=== PATIENT | female | born 1940 ===

== ENCOUNTER 2020-10-13 14:12 | Inpatient (IN) | payer OTHER ==
[~2020-10-13] VITALS: Wt 51.3 kg
[2020-10-13] MEDS ORDERED: CETIRIZINE10 MG PO (16:21)
[2020-10-13] MEDS ORDERED: B121000 MCG/1 IM (16:23)
[2020-10-13] MEDS ORDERED: EXELON1 EAC1 T (16:23)
[2020-10-13] MEDS ORDERED: TRELEGY ELLIPT1 EACH INH (16:25)
[2020-10-13] MEDS ORDERED: LASIX20 MG PO (16:26)
[2020-10-13] MEDS ORDERED: MEGACE 40400 MG/10 PO (16:27)
[2020-10-13] MEDS ORDERED: MELATONIN10 M2 PO (16:28)
[2020-10-13] MEDS ORDERED: PROTONIX40 MG PO (16:29)
[2020-10-13] MEDS ORDERED: REMERON15 M2 PO (16:30)
[2020-10-13] MEDS ORDERED: VITAMIN D3125 MC1 PO (16:31)
[2020-10-13] MEDS ORDERED: PROAIR HFA8.5 GM INH (16:32)
[2020-10-13] MEDS ORDERED: COLACE100 MG PO (16:32)
[2020-10-13] MEDS ORDERED: VISTARIL50 MG PO (16:33)
[2020-10-13] MEDS ORDERED: VENTOLIN 02.5 MG/3 M INH (16:34)
[2020-10-13] MEDS ORDERED: ATIVAN1 MG PO (16:35)
[2020-10-13] MEDS ORDERED: MILK OF MA400 MG/5 M PO (16:36)
[2020-10-13] MEDS ORDERED: TYLENOL325 M1 PO (16:36)
[2020-10-13 17:35] VITALS: BP 107/48
[2020-10-13 18:38] LABS: BILIRUBIN Negative (Negative); BLOOD Negative (Negative); CLARITY Clear (Clear); COLOR Yellow (Yellow); GLUCOSE Negative (Negative); KETONE Negative (Negative); LEUKO ESTERASE 2+ (Negative); NITRITE Negative (Negative); SPECIFIC GRAVITY 1.015 (1.001-1.030)
[2020-10-13 19:02] LABS: BACTERIA 3+; RBC 0-2 rbc/hpf (0-2); WBC 21-30 wbc/hpf (0-5)
[2020-10-14 06:27] LABS: BASO % 0.4 % (0.0-1.0); EOS # 0.2 10*3/uL (0.0-0.4); EOS % 3.5 % (1.0-4.0); HEMATOCRIT 36.4 % (37.0-47.0); LYMPH % 29.4 % (27.0-41.0); MEAN CELL VOLUME 94.3 fl (81.0-99.0); MEAN CORPUSCULAR HGB 30.1 pg (27.0-31.0); MEAN CORPUSCULAR HGB CONC 31.9 g/dl (33.0-37.0); MONO # 0.6 10*3/uL (0.1-1.0); MONO % 8.7 % (3.0-9.0); NEUT % 57.7 % (47.0-73.0); PLATELET COUNT AUTOMATED 284 10*3/uL (130-400); RED BLOOD COUNT 3.86 10*6/uL (4.10-5.10); RED CELL DISTRI WIDTH 13.7 % (0-14.5); WHITE BLOOD COUNT 6.9 10*3/uL (4.8-10.8)
[2020-10-14 06:29] LABS: ALBUMIN 3.2 gm/dl (3.1-4.5); CREATININE 1.3 mg/dL (0.55-1.02); POTASSIUM 3.7 mmol/L (3.5-5.1); TOTAL PROTEIN 6.8 gm/dL (6.4-8.2)
[2020-10-14 06:37] LABS: THYROID STIM HORMONE (HS) 0.299 uIU/ml (0.358-4.75)
[2020-10-14 08:10] LABS: VITAMIN D, 25-HYDROXY 36.6 ng/mL (30-100)
[2020-10-14 08:14] VITALS: BP 110/50
[2020-10-14 20:00] VITALS: BP 110/58
[2020-10-15 07:51] VITALS: BP 116/76
[2020-10-15 12:54] LABS: FREE T4 1.14 ng/dl (0.76-1.46)
[2020-10-15 12:59] LABS: THYROID STIM HORMONE (HS) 0.236 uIU/ml (0.358-4.75)
[2020-10-15 20:00] VITALS: BP 121/65
[2020-10-16 07:04] LABS: CREATININE 1.22 mg/dL (0.55-1.02); POTASSIUM 4.3 mmol/L (3.5-5.1)
[2020-10-16 07:49] VITALS: BP 120/62
[2020-10-16 20:00] VITALS: BP 110/50
[2020-10-17 07:25] VITALS: BP 110/59
[2020-10-17 20:00] VITALS: BP 118/62
[2020-10-18 06:33] LABS: CREATININE 1.25 mg/dL (0.55-1.02); POTASSIUM 4.2 mmol/L (3.5-5.1)
[2020-10-18 07:51] VITALS: BP 111/50
[2020-10-18 10:56] LABS: ABG BASE EXCESS 17.3 mmol/L (-2.0-2.0); ARTERIAL BLOOD GAS PH 7.396 (7.35-7.45); ARTERIAL BLOOD GAS PO2 103.6 (80-90)
[2020-10-18] MEDS ORDERED: FUROSEMIDE40 MG PO (12:28)
[2020-10-18] MEDS ORDERED: RIVASTIGMINE1 EAC2 T (12:28)
== END 2020-10-18 13:05 | disposition short-term general hospital (02) | DRG 883 ==
LOC: 3N 14:12
PROVIDERS: Internal Medicine; ADMIT Psychiatry & Neurology Psychiatry; ATTEND Psychiatry & Neurology Psychiatry
DX: F63.81 Intermittent explosive disorder (principal); N18.30 Chronic kidney disease, stage 3 unspecified; N39.0 Urinary tract infection, site not specified; G30.9 Alzheimer's disease, unspecified; F02.80 Dementia in other diseases classified elsewhere, unspecified severity, without behavioral disturbance, psychotic disturbance, mood disturbance, and anxiety; J44.9 Chronic obstructive pulmonary disease, unspecified; M79.89 Other specified soft tissue disorders; K21.9 Gastro-esophageal reflux disease without esophagitis; Z87.442 Personal history of urinary calculi; Z87.891 Personal history of nicotine dependence; Z88.0 Allergy status to penicillin; Z88.2 Allergy status to sulfonamides; Z88.1 Allergy status to other antibiotic agents; Z90.710 Acquired absence of both cervix and uterus; Z79.899 Other long term (current) drug therapy

== ENCOUNTER 2020-10-18 13:43 | Inpatient (IN) | payer OTHER ==
[~2020-10-18] VITALS: Ht 157.4 cm; Wt 50.6 kg
[~2020-10-18 13:43] MED LIST: ATIVAN1 MG PO; B121000 MCG/1 IM; CETIRIZINE10 MG PO; COLACE100 MG PO; EXELON1 EAC1 T; FUROSEMIDE40 MG PO; LASIX20 MG PO; MEGACE 40400 MG/10 PO; MELATONIN10 M2 PO; MILK OF MA400 MG/5 M PO; PROAIR HFA8.5 GM INH; PROTONIX40 MG PO; REMERON15 M2 PO; RIVASTIGMINE1 EAC2 T; TRELEGY ELLIPT1 EACH INH; TYLENOL325 M1 PO; VENTOLIN 02.5 MG/3 M INH; VISTARIL50 MG PO; VITAMIN D3125 MC1 PO
[2020-10-18 14:25] VITALS: BP 111/89
[2020-10-18 14:33] LABS: BASO % 0.7 % (0.0-1.0); EOS # 0.2 10*3/uL (0.0-0.4); EOS % 3.9 % (1.0-4.0); HEMATOCRIT 39.8 % (37.0-47.0); LYMPH # 1.1 10*3/uL (1.3-4.4); LYMPH % 18.6 % (27.0-41.0); MEAN CELL VOLUME 97.5 fl (81.0-99.0); MEAN CORPUSCULAR HGB 30.1 pg (27.0-31.0); MEAN CORPUSCULAR HGB CONC 30.9 g/dl (33.0-37.0); MEAN PLATELET VOLUME 9.3 fl (9.6-12.3); MONO # 0.6 10*3/uL (0.1-1.0); MONO % 10.9 % (3.0-9.0); NEUT # 3.8 10*3/uL (2.3-7.9); NEUT % 65.9 % (47.0-73.0); PLATELET COUNT AUTOMATED 220 10*3/uL (130-400); RED BLOOD COUNT 4.08 10*6/uL (4.10-5.10); RED CELL DISTRI WIDTH 13.2 % (0-14.5); WHITE BLOOD COUNT 5.7 10*3/uL (4.8-10.8)
[2020-10-18 16:00] VITALS: BP 109/78
[2020-10-18 20:00] VITALS: BP 115/46
[2020-10-19] VITALS: BP 86/42
[2020-10-19 06:06] LABS: BASO # 0.1 10*3/uL (0.0-0.1); BASO % 0.7 % (0.0-1.0); EOS # 0.3 10*3/uL (0.0-0.4); EOS % 3.7 % (1.0-4.0); HEMATOCRIT 38.9 % (37.0-47.0); LYMPH # 1.5 10*3/uL (1.3-4.4); LYMPH % 21.5 % (27.0-41.0); MEAN CORPUSCULAR HGB 29.9 pg (27.0-31.0); MEAN CORPUSCULAR HGB CONC 30.8 g/dl (33.0-37.0); MONO # 0.8 10*3/uL (0.1-1.0); MONO % 10.8 % (3.0-9.0); NEUT # 4.4 10*3/uL (2.3-7.9); NEUT % 63.3 % (47.0-73.0); PLATELET COUNT AUTOMATED 224 10*3/uL (130-400); RED BLOOD COUNT 4.01 10*6/uL (4.10-5.10); RED CELL DISTRI WIDTH 13.1 % (0-14.5); WHITE BLOOD COUNT 6.9 10*3/uL (4.8-10.8)
[2020-10-19 06:18] LABS: ALBUMIN 3.2 gm/dl (3.1-4.5); CREATININE 1.22 mg/dL (0.55-1.02); POTASSIUM 3.9 mmol/L (3.5-5.1); TOTAL PROTEIN 7.1 gm/dL (6.4-8.2)
[2020-10-19 08:00] VITALS: BP 90/42
[2020-10-19 10:13] LABS: ARTERIAL BLOOD GAS PH 7.434 (7.35-7.45); ARTERIAL BLOOD GAS PO2 88.2 (80-90)
[2020-10-19 12:00] VITALS: BP 99/69
[2020-10-19 16:00] VITALS: BP 98/78
[2020-10-19 20:00] VITALS: BP 199/60
[2020-10-20] VITALS: BP 104/52
[2020-10-20 06:27] LABS: BASO # 0.1 10*3/uL (0.0-0.1); BASO % 0.7 % (0.0-1.0); EOS # 0.3 10*3/uL (0.0-0.4); HEMATOCRIT 36.1 % (37.0-47.0); LYMPH % 23.6 % (27.0-41.0); MEAN CELL VOLUME 95.8 fl (81.0-99.0); MEAN CORPUSCULAR HGB 29.7 pg (27.0-31.0); MEAN PLATELET VOLUME 9.9 fl (9.6-12.3); MONO % 11.3 % (3.0-9.0); NEUT # 5.2 10*3/uL (2.3-7.9); NEUT % 60.2 % (47.0-73.0); PLATELET COUNT AUTOMATED 214 10*3/uL (130-400); RED BLOOD COUNT 3.77 10*6/uL (4.10-5.10); RED CELL DISTRI WIDTH 13.2 % (0-14.5); WHITE BLOOD COUNT 8.6 10*3/uL (4.8-10.8)
[2020-10-20 07:04] LABS: CREATININE 1.25 mg/dL (0.55-1.02); POTASSIUM 3.6 mmol/L (3.5-5.1)
[2020-10-20 08:00] VITALS: BP 114/53
[2020-10-20 12:27] VITALS: BP 107/44
[2020-10-20 16:00] VITALS: BP 122/72
[2020-10-20 20:00] VITALS: BP 107/60
[2020-10-21] VITALS: BP 119/79
[2020-10-21 07:25] LABS: CREATININE 1.23 mg/dL (0.55-1.02); POTASSIUM 4.3 mmol/L (3.5-5.1)
[2020-10-21 08:00] VITALS: BP 101/42
[2020-10-21 12:00] VITALS: BP 102/48
[2020-10-21 16:00] VITALS: BP 116/48
[2020-10-21 20:00] VITALS: BP 128/51
[2020-10-22] VITALS: BP 114/65
[2020-10-22 08:00] VITALS: BP 108/60
[2020-10-22 09:19] LABS: BUN 28 mg/dl (7-24); CHLORIDE 99 mmol/L (98-107); CREATININE 1.04 mg/dL (0.55-1.02); POTASSIUM 4.4 mmol/L (3.5-5.1); SODIUM 139 mmol/L (136-145)
[2020-10-22 16:00] VITALS: BP 110/48
[2020-10-22 20:00] VITALS: BP 124/48
[2020-10-23] VITALS: BP 105/59
[2020-10-23 06:47] LABS: BASO % 0.2 % (0.0-1.0); HEMATOCRIT 37.2 % (37.0-47.0); LYMPH # 0.7 10*3/uL (1.3-4.4); LYMPH % 11.5 % (27.0-41.0); MEAN CELL VOLUME 95.4 fl (81.0-99.0); MEAN CORPUSCULAR HGB 29.5 pg (27.0-31.0); MEAN CORPUSCULAR HGB CONC 30.9 g/dl (33.0-37.0); MEAN PLATELET VOLUME 10.3 fl (9.6-12.3); MONO # 0.1 10*3/uL (0.1-1.0); MONO % 1.9 % (3.0-9.0); NEUT # 5.1 10*3/uL (2.3-7.9); NEUT % 86.1 % (47.0-73.0); PLATELET COUNT AUTOMATED 234 10*3/uL (130-400); RED CELL DISTRI WIDTH 12.7 % (0-14.5); WHITE BLOOD COUNT 5.9 10*3/uL (4.8-10.8)
[2020-10-23 07:00] LABS: CREATININE 1.15 mg/dL (0.55-1.02); POTASSIUM 5.2 mmol/L (3.5-5.1)
[2020-10-23 08:00] VITALS: BP 120/56
[2020-10-23 12:00] VITALS: BP 123/91
== END 2020-10-23 12:20 | DRG 189 ==
LOC: 4E 13:43
PROVIDERS: Internal Medicine; ADMIT Internal Medicine; ATTEND Internal Medicine
PROC: 5A09357 Assistance with Respiratory Ventilation, Less than 24 Consecutive Hours, Continuous Positive Airway Pressure (ICD-10-PCS; principal; 2020-10-18)
PROC: 5A09357 Assistance with Respiratory Ventilation, Less than 24 Consecutive Hours, Continuous Positive Airway Pressure (ICD-10-PCS; 2020-10-18)
DX: J96.22 Acute and chronic respiratory failure with hypercapnia (principal); N17.0 Acute kidney failure with tubular necrosis; E87.3 Alkalosis; J45.20 Mild intermittent asthma, uncomplicated; F63.81 Intermittent explosive disorder; G30.9 Alzheimer's disease, unspecified; F02.80 Dementia in other diseases classified elsewhere, unspecified severity, without behavioral disturbance, psychotic disturbance, mood disturbance, and anxiety; J44.9 Chronic obstructive pulmonary disease, unspecified; K21.9 Gastro-esophageal reflux disease without esophagitis; Z66 Do not resuscitate; Z51.5 Encounter for palliative care; Z87.442 Personal history of urinary calculi; Z90.710 Acquired absence of both cervix and uterus; Z88.0 Allergy status to penicillin; Z88.2 Allergy status to sulfonamides; Z88.8 Allergy status to other drugs, medicaments and biological substances

== ENCOUNTER 2020-10-23 10:50 | Inpatient (IN) | payer OTHER ==
[~2020-10-23] VITALS: Ht 157.4 cm; Wt 56.2 kg
[2020-10-23 12:42] VITALS: BP 139/87
[2020-10-23 19:08] VITALS: BP 125/76
[2020-10-23 19:37] VITALS: BP 125/76
[2020-10-24 07:51] VITALS: BP 149/68
[2020-10-24 20:00] VITALS: BP 135/53
[2020-10-24 20:42] VITALS: BP 128/72
[2020-10-25 07:30] VITALS: BP 130/56
[2020-10-25 20:00] VITALS: BP 120/59
[2020-10-26 06:31] LABS: BASO % 0.5 % (0.0-1.0); EOS # 0.2 10*3/uL (0.0-0.4); EOS % 2.7 % (1.0-4.0); HEMATOCRIT 35.9 % (37.0-47.0); LYMPH # 1.8 10*3/uL (1.3-4.4); LYMPH % 22.4 % (27.0-41.0); MEAN CORPUSCULAR HGB 29.6 pg (27.0-31.0); MEAN CORPUSCULAR HGB CONC 31.5 g/dl (33.0-37.0); MONO # 0.9 10*3/uL (0.1-1.0); MONO % 11.4 % (3.0-9.0); NEUT # 5.1 10*3/uL (2.3-7.9); NEUT % 62.9 % (47.0-73.0); PLATELET COUNT AUTOMATED 241 10*3/uL (130-400); RED BLOOD COUNT 3.82 10*6/uL (4.10-5.10); RED CELL DISTRI WIDTH 13.7 % (0-14.5); WHITE BLOOD COUNT 8.1 10*3/uL (4.8-10.8)
[2020-10-26 07:07] LABS: CREATININE 1.27 mg/dL (0.55-1.02); POTASSIUM 4.3 mmol/L (3.5-5.1)
[2020-10-26 08:00] VITALS: BP 107/58
[2020-10-26 20:00] VITALS: BP 124/61
[2020-10-27 07:36] VITALS: BP 110/54
[2020-10-27 20:00] VITALS: BP 114/64
[2020-10-28 08:15] VITALS: BP 121/55
[2020-10-28 11:19] LABS: ALBUMIN 3.1 gm/dl (3.1-4.5); ALKALINE PHOSPHATASE 62 U/L (45-117); BUN 20 mg/dl (7-24); CHLORIDE 104 mmol/L (98-107); CREATININE 1.04 mg/dL (0.55-1.02); POTASSIUM 3.8 mmol/L (3.5-5.1); SGOT/AST 18 IU/L (3-35); SGPT/ALT 17 U/L (12-78); SODIUM 140 mmol/L (136-145); TOTAL PROTEIN 6.4 gm/dL (6.4-8.2)
[2020-10-28 20:00] VITALS: BP 114/60
[2020-10-29 08:13] VITALS: BP 120/56
[2020-10-29 20:00] VITALS: BP 138/76
[2020-10-30 05:00] VITALS: BP 132/68
[2020-10-30 09:05] LABS: BASO % 0.5 % (0.0-1.0); EOS # 0.5 10*3/uL (0.0-0.4); EOS % 6.4 % (1.0-4.0); HEMATOCRIT 36.2 % (37.0-47.0); LYMPH # 0.9 10*3/uL (1.3-4.4); LYMPH % 10.7 % (27.0-41.0); MEAN CELL VOLUME 95.8 fl (81.0-99.0); MEAN CORPUSCULAR HGB 30.2 pg (27.0-31.0); MEAN CORPUSCULAR HGB CONC 31.5 g/dl (33.0-37.0); MONO # 0.8 10*3/uL (0.1-1.0); MONO % 10.2 % (3.0-9.0); NEUT # 5.8 10*3/uL (2.3-7.9); PLATELET COUNT AUTOMATED 215 10*3/uL (130-400); RED BLOOD COUNT 3.78 10*6/uL (4.10-5.10); RED CELL DISTRI WIDTH 13.2 % (0-14.5); WHITE BLOOD COUNT 8.1 10*3/uL (4.8-10.8)
[2020-10-30 09:20] LABS: ALKALINE PHOSPHATASE 65 U/L (45-117); BUN 16 mg/dl (7-24); CHLORIDE 103 mmol/L (98-107); CREATININE 0.87 mg/dL (0.55-1.02); POTASSIUM 4.4 mmol/L (3.5-5.1); SGOT/AST 13 IU/L (3-35); SGPT/ALT 15 U/L (12-78); SODIUM 139 mmol/L (136-145); TOTAL PROTEIN 6.4 gm/dL (6.4-8.2)
== END 2020-10-30 08:50 | disposition short-term general hospital (02) | DRG 881 ==
LOC: 3N 10:50
PROVIDERS: Counselor Professional; Registered Nurse; ADMIT Psychiatry & Neurology Psychiatry; ATTEND Psychiatry & Neurology Psychiatry
DX: F32.9 Major depressive disorder, single episode, unspecified (principal); F63.81 Intermittent explosive disorder; J96.10 Chronic respiratory failure, unspecified whether with hypoxia or hypercapnia; N18.31 Chronic kidney disease, stage 3a; G30.9 Alzheimer's disease, unspecified; F48.2 Pseudobulbar affect; J44.9 Chronic obstructive pulmonary disease, unspecified; K21.9 Gastro-esophageal reflux disease without esophagitis; F02.80 Dementia in other diseases classified elsewhere, unspecified severity, without behavioral disturbance, psychotic disturbance, mood disturbance, and anxiety; Z87.891 Personal history of nicotine dependence; Z90.710 Acquired absence of both cervix and uterus; Z88.0 Allergy status to penicillin; Z88.2 Allergy status to sulfonamides; Z99.81 Dependence on supplemental oxygen; Z88.1 Allergy status to other antibiotic agents; Z88.8 Allergy status to other drugs, medicaments and biological substances

== ENCOUNTER 2020-10-30 09:32 | Inpatient (IN) | payer OTHER ==
[~2020-10-30] VITALS: Ht 157.5 cm; Wt 56.2 kg
[2020-10-30 09:20] VITALS: BP 148/70
[2020-10-30 12:00] VITALS: BP 143/63
[2020-10-30 18:00] VITALS: BP 143/81
[2020-10-31] VITALS: BP 167/83
[2020-10-31 06:11] LABS: ALBUMIN 2.8 gm/dl (3.1-4.5); ALKALINE PHOSPHATASE 60 U/L (45-117); BUN 22 mg/dl (7-24); CHLORIDE 101 mmol/L (98-107); CREATININE 0.94 mg/dL (0.55-1.02); POTASSIUM 4.6 mmol/L (3.5-5.1); SGOT/AST 15 IU/L (3-35); SGPT/ALT 14 U/L (12-78); SODIUM 138 mmol/L (136-145); TOTAL PROTEIN 6.1 gm/dL (6.4-8.2)
[2020-10-31 06:27] LABS: BASO # 0.1 10*3/uL (0.0-0.1); BASO % 0.8 % (0.0-1.0); EOS # 0.2 10*3/uL (0.0-0.4); HEMATOCRIT 34.9 % (37.0-47.0); LYMPH # 0.7 10*3/uL (1.3-4.4); LYMPH % 12.2 % (27.0-41.0); MEAN CELL VOLUME 96.4 fl (81.0-99.0); MEAN CORPUSCULAR HGB 29.3 pg (27.0-31.0); MEAN CORPUSCULAR HGB CONC 30.4 g/dl (33.0-37.0); MEAN PLATELET VOLUME 10.4 fl (9.6-12.3); MONO # 0.7 10*3/uL (0.1-1.0); MONO % 12.4 % (3.0-9.0); NEUT # 4.2 10*3/uL (2.3-7.9); NEUT % 70.4 % (47.0-73.0); PLATELET COUNT AUTOMATED 219 10*3/uL (130-400); RED BLOOD COUNT 3.62 10*6/uL (4.10-5.10); RED CELL DISTRI WIDTH 12.9 % (0-14.5)
[2020-10-31 08:00] VITALS: BP 125/77
[2020-10-31 16:00] VITALS: BP 157/73
[2020-10-31 20:00] VITALS: BP 158/69
[2020-11-01] VITALS: BP 152/77
[2020-11-01 08:00] VITALS: BP 115/63; BP 134/71
[2020-11-01] MEDS ORDERED: ATIVAN1 MG PO (11:00)
[2020-11-01 12:00] VITALS: BP 142/54
[2020-11-01 16:00] VITALS: BP 135/54
[2020-11-02] VITALS: BP 153/57
[2020-11-02 08:00] VITALS: BP 148/76
== END 2020-11-02 10:58 | DRG 189 ==
LOC: 4E 09:32
PROVIDERS: Registered Nurse; ADMIT Family Medicine; ATTEND Family Medicine
DX: J96.21 Acute and chronic respiratory failure with hypoxia (principal); R65.10 Systemic inflammatory response syndrome (SIRS) of non-infectious origin without acute organ dysfunction; J96.22 Acute and chronic respiratory failure with hypercapnia; Z66 Do not resuscitate; Z51.5 Encounter for palliative care; F63.81 Intermittent explosive disorder; G30.9 Alzheimer's disease, unspecified; K21.9 Gastro-esophageal reflux disease without esophagitis; Z20.822 Contact with and (suspected) exposure to COVID-19; N18.31 Chronic kidney disease, stage 3a; J43.9 Emphysema, unspecified; F02.80 Dementia in other diseases classified elsewhere, unspecified severity, without behavioral disturbance, psychotic disturbance, mood disturbance, and anxiety; Z99.81 Dependence on supplemental oxygen; Z87.891 Personal history of nicotine dependence; Z88.0 Allergy status to penicillin; Z88.2 Allergy status to sulfonamides; Z88.1 Allergy status to other antibiotic agents; Z79.1 Long term (current) use of non-steroidal anti-inflammatories (NSAID); Z79.51 Long term (current) use of inhaled steroids; Z79.899 Other long term (current) drug therapy